=== PATIENT | female | born 1960 | race Caucasian/White ===

== ENCOUNTER 2016-11-30 19:09 | Emergency (ER) | payer OTHER ==
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
== END 2016-11-30 20:56 | disposition home or self-care (01) ==
LOC: FB.ED 19:09
DX: S90.511A Abrasion, right ankle, initial encounter (principal); T07.XXXA Unspecified multiple injuries, initial encounter; V03.90XA Pedestrian on foot injured in collision with car, pick-up truck or van, unspecified whether traffic or nontraffic accident, initial encounter; Y92.410 Unspecified street and highway as the place of occurrence of the external cause
CPT/HCPCS: 99283